=== PATIENT | male | born 1950 | race African-American/Black ===

== ENCOUNTER 2019-11-23 10:20 | Observation (INO) | payer OTHER ==
--- OUTSIDE RECORDS SUMMARY | 2019-11-23 12:32 | XMS REPORT | Continuity of Care Document ---
:1950 Author Organization [facility] t Address [address] [place] [address] Care Team Providers Name Role Phone Olimpia JEREZ Attending Clinician Doctor Unassigned, Name Attending Clinician Unavailable Problems This patient has no known problems. Allergies, Adverse Reactions, Alerts This patient has no known allergies or adverse reactions. Medications This patient has no known medications. Procedures This patient has no known procedures. Encounters Start End Encounter Admission Attending Care Care Encounter Source Date/Time Date/Time Type Type Clinicians Facility Department ID 2019-08-15 2019-08-15 Telemedici DINA Doan 1.2.840.114 [id number] 07:54:39 08:09:39 ne Visit Charlie Moses 350.1.13.10 [place] 4.2.7.2.686 [facility] [id number] [address] 2019-08-06 2019-08-06 Orders Doctor TINEO 1.2.840.114 [id number] 00:00:00 00:00:00 Only UnassignedLEX 350.1.13.10 [place] [facility] 4.2.7.2.686 [id number] 2018-11-12 2018-11-12 Orders Doctor TINEO 1.2.840.114 [id number] 00:00:00 00:00:00 Only UnassignedLEX 350.1.13.10 [place] [facility] 4.2.7.2.686 [id number] 2018-10-23 2018-10-23 Telephone DINA Doan 1.2.991.150 [id number] 00:00:00 00:00:00 Charlie Moses 350.1.13.10 [place] 4.2.7.2.686 [facility] [id number] [place] [address] Building Results This patient has no known results.
[2019-11-23] MEDS ORDERED: HOME MED 1 EA UNK (Acetaminophen With Codeine [Tylenol With Codeine #4 Tablet] 1 EACH) PO PRN (13:44)
[2019-11-23] MEDS ORDERED: DOXAZOSIN 2 MG TAB ONE (15:51)
[2019-11-23] MEDS: minoxidiL 2.5 MG TAB PO SCH (16:03)
[2019-11-23] MEDS: hydroCHLOROthiazide 12.5 MG CAP PO SCH (16:04)
[2019-11-23] MEDS: ASPIRIN 81 MG CHEWABLE TABLET PO SCH (16:05)
[2019-11-23] MEDS: CELECOXIB 100 MG CAPSULE PO SCH (16:05)
[2019-11-23] MEDS: lisinopriL 20 MG TAB PO SCH (16:05)
[2019-11-23] MEDS: DOXAZOSIN 4 MG TAB PO SCH (17:05)
[2019-11-23] MEDS ORDERED: PNEUMOCOCCAL VACCINE 0.5 ML IMVAC ONE (18:00)
[2019-11-23] MEDS ORDERED: CODEINE 30MG/APAP 300MG TAB PO PRN (18:47)
[2019-11-23] MEDS ORDERED: ACETAMINOPHEN 500 MG TAB PO PRN (18:49)
[2019-11-23 19:24] LABS: Absolute Lymphocytes (CBC) 2.5 K/uL (0.7-4.9); Basophils % 0.6 % (0-1.3); Hematocrit 36.2 % (39.6-49.0); Lymphocytes % 38.7 % (15.3-44.8); RBC Red Blood Cell Count 4.05 M/uL (4.33-5.43)
[2019-11-23 19:48] LABS: ALT/SGPT 21 U/L (12-78); AST/SGOT 12 U/L (15-37); Albumin 3.3 g/dL (3.4-5.0); Alkaline Phosphatase 80 U/L (45-117); BUN Blood Urea Nitrogen 12 mg/dL (7-18); Bicarbonate 30 mmol/L (21-32); Bilirubin Total 0.5 mg/dL (0.2-1.0); CKMB Creatine Kinase MB < 1.0 ng/mL (0.3-3.6); Creatine Phosphokinase 174 U/L (39-308); Glucose Level 108 mg/dL (74-106); Magnesium 2.1 mg/dL (1.8-2.4); Potassium 3.7 mmol/L (3.5-5.1); Protein, Total 7.4 g/dL (6.4-8.2); Sodium Level 141 mmol/L (136-145); Troponin I < 0.02 ng/mL (0.0-0.045)
[2019-11-23] MEDS: ENOXAPARIN 30 MG/0.3 ML SQ SCH (20:22)
[2019-11-23] MEDS: CLONIDINE HCL 0.3 MG TAB PO SCH (20:22)
[2019-11-23 20:48] VITALS: BMI 47.5
[2019-11-23] MEDS ORDERED: ATORVASTATIN 20 MG TAB PO SCH (21:00)
--- NOTE | 2019-11-23 22:52 | HP ---
Date of Admission: 11/23/2019 DALE/MODL [facility] ID: [id number] MTDD
--- NOTE | 2019-11-24 08:24 | RAD REPORT ---
EXAM DESCRIPTION: CT - Head Brain Wo Cont - 11/24/2019 7:50 am CLINICAL HISTORY: Headache COMPARISON: None. TECHNIQUE: Computed axial tomography of the head was obtained. IV contrast was not requested. All CT scans are performed using dose optimization technique as appropriate and may include automated exposure control or mA/KV adjustment according to patient size. FINDINGS: An intracranial bleed is not seen . The ventricles are normal in caliber. No extra-axial fluid collection is noted. Mild to moderate opacification involves the ethmoid and frontal sinus compatible with sinusitis IMPRESSION: No acute intracranial abnormality is seen. If patient's symptoms persist MRI of the bra in would be recommended.
[2019-11-24] MEDS: CLONIDINE HCL 0.3 MG TAB PO SCH (08:53)
[2019-11-24] MEDS: minoxidiL 2.5 MG TAB PO SCH (08:53)
[2019-11-24] MEDS: DOXAZOSIN 4 MG TAB PO SCH (08:54)
[2019-11-24] MEDS: lisinopriL 20 MG TAB PO SCH (08:54)
[2019-11-24] MEDS: ASPIRIN 81 MG CHEWABLE TABLET PO SCH (08:55)
[2019-11-24] MEDS: hydroCHLOROthiazide 12.5 MG CAP PO SCH (08:55)
[2019-11-24] MEDS: CELECOXIB 100 MG CAPSULE PO SCH (08:55)
[2019-11-24] MEDS: ENOXAPARIN 30 MG/0.3 ML SQ SCH (09:00)
[2019-11-24] MEDS ORDERED: HYDROCHLOROTHIAZIDE PO SCH (09:00)
[2019-11-24] MEDS ORDERED: CELECOXIB 200 MG PO SCH (09:00)
[2019-11-24] MEDS ORDERED: POTASSIUM CL SA 10 MEQ TAB PO ONE (09:00)
[2019-11-24] MEDS ORDERED: LISINOPRIL PO SCH (09:00)
--- NOTE | 2019-11-24 11:49 | RAD REPORT ---
EXAM DESCRIPTION: Maya Galvan (2 Views)11/24/2019 11:32 am CLINICAL HISTORY: Palpitation COMPARISON: 2016 FINDINGS: The lungs appear clear of acute infiltrate. The heart is normal size IMPRESSION: No acute abnormalities displayed
[2019-11-24 17:21] VITALS: BP 156/74; TEMP 97.3
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
--- NOTE | 2019-11-25 07:45 | CON ---
Date of Consultation: 11/23/[address] Valadez's service on 11/23/2019. The patient was seen on 11/23/2019. Reason For Consultation: Palpitations. History Of Present Illness: Mr. Maguire is a 68-year-old black male, has had a history of hypertension . Has seen Dr. Sunshine in the past. He also has a history of sleep apnea. He came in with palpitat ions and was noted to be in intermittent episodes of supraventricular tachycardia. He did have some shortness of breath with tachycardia, but denied any syncope. Denied any PND, orthopnea, pedal edema . He denied any fever or chills or cough. Denied any chest pain. He is already ruled out for an CT . Catheterization that was done in 2014 by me showed minimal coronary artery disease in the right co ronary artery. Mr. Maguire admits to drinking coffee, but no drug or alcohol was recorded. Past Medical History: Otherwise negative. Allergies: TO NO MEDICATION. Medications: At home include Lipitor, clonidine, aspirin, hydrochlorothiazide, doxazosin, minoxidil, and lisinopril. Review of Systems: Negative. Social History: Negative. Family History: Noncontributory. Physical Examination: Vital Signs: Blood pressure was 162/83. He was in sinus rhythm. HEENT: Negative. Neck: Supple with no bruit. Chest: Clear. Cardiac: Revealed a regular rhythm and rate with S4 gallop. Abdomen: Benign. Extremities: Revealed no clubbing, cyanosis, or edema. Diagnostic Data: Fairly unremarkable. Impression And Plan: Supraventricular tachycardia. I think we need to change his medication from do xazosin to beta-hansa. Echocardiogram is pending. TSH is pending. He has had minimal coronary ar jesus disease in 2016. I do not think we need to do any further cardiac workup at this point. He can certainly follow up with me or Dr. Sunshine. I will leave that up to him. The case was discussed wi th Dr. Valadez. His other problems including dyslipidemia and hypertension are fairly well controlled. NB/MODL Voice ID: [id number] Report ID: [id number]
--- NOTE | 2019-11-25 08:16 | ECHO ---
HEIGHT: 6 ft 1 in WEIGHT: 360 lb 0 oz DATE OF STUDY: 11/24/[address]: Reinier Valadez MD 2-DIMENSIONAL: YES M.MODE: YES DOPPLER: YES COLOR FLOW: YES TDS: YES PORTABLE: NO DEFINITY: NO BUBBLE STUDY: NO DIAGNOSIS: PALPITATIONS CARDIAC HISTORY: CATHERIZATION: NO SURGERY: NO PROSTHETIC VALVE: NO PACEMAKER: NO MEASUREMENTS (cm) DIASTOLIC (NORMALS) SYSTOLIC (NORMALS) IVSd 0.9 (0.6-1.2) LA Diam 3.3 (1.9-4.0) LVEF 52% LVIDd 4.9 (3.5-5.7) LVIDs 3.6 (2.0-3.5) %FS 26% LVPWd 1.1 (0.6-1.2) Ao Diam 2.9 (2.0-3.7) 2 DIMENSIONAL ASSESSMENT: RIGHT ATRIUM: NORMAL LEFT ATRIUM: NORMAL RIGHT VENTRICLE: NORMAL LEFT VENTRICLE: NORMAL TRICUSPID VALVE: NORMAL MITRAL VALVE: PULMONIC VALVE: NORMAL AORTIC VALVE: NORMAL PERICARDIAL EFFUSION: NONE AORTIC ROOT: NORMAL LEFT VENTRICULAR WALL MOTION: NORMAL DOPPLER/COLOR FLOW: NORMAL COMMENTS: NORMAL LEFT VENTRICULAR EJECTION FRACTION 55-60%. NORMAL WALL MOTION. MILD MITRAL REGURGITATION. TECHNOLOGIST: Kim RIVAS
--- NOTE | 2019-11-25 17:12 | DS ---
Date of Discharge: 11/24/2019 Disposition: Discharged to go home. Physical Examination: Please see copy of today's H and P for details. Discharge Medications And Instructions: Continue all prior home medications except stop doxazosin and start metoprolol tartrate 25 mg 1 tablet by mouth 2 times a day. Follow up in my office this week on which is 11/27/2019. Final Diagnoses: 1. Supraventricular tachycardia. 2. Hypertension. 3. Type 2 diabetes mellitus. 4. Hyperlipidemia. 5. Headache. 6. Morbid obesity. 7. Osteoarthritis, multiple sites. 8. Coronary artery disease. 9. Obstructive sleep apnea. 10. Dizziness. 11. Palpitation. Hospital Course: A 68-year-old pleasant male patient, who was admitted to the hospital with complaints of headache, palpitations, and some dizziness. Please see dictated H and P for more information. The patient's cardiac enzymes were normal. EKG was normal. Overnight on air sampling and monitoring, he did have short run of supraventricular tachycardia and he was sleeping through this episode. This morning when I saw him he had no other complaint. Dr. Rolon was consulted from Cardiology Service and the patient had echocardiogram, which was reported as normal. I did talk to Dr. Rolon about medication management and he suggested to start him on metoprolol and discontinue doxazosin, which I agree and details were discussed with the patient and I will see him on outpatient basis for followup. DALE/RISIH Voice ID: [id number] Report ID: [id number] CES[facility]
== END 2019-11-24 17:09 | disposition home or self-care (01) ==
LOC: 2ND 12:30
PROVIDERS: ADMIT Internal Medicine; ATTEND Internal Medicine
DX: I47.1 Supraventricular tachycardia (principal); I10 Essential (primary) hypertension; E11.9 Type 2 diabetes mellitus without complications; E78.5 Hyperlipidemia, unspecified; M15.9 Polyosteoarthritis, unspecified; I25.10 Atherosclerotic heart disease of native coronary artery without angina pectoris; G47.33 Obstructive sleep apnea (adult) (pediatric); R00.2 Palpitations; R42 Dizziness and giddiness; R51 Headache; E66.01 Morbid (severe) obesity due to excess calories; Z20.828 Contact with and (suspected) exposure to other viral communicable diseases; I34.0 Nonrheumatic mitral (valve) insufficiency; Z79.82 Long term (current) use of aspirin; Z79.84 Long term (current) use of oral hypoglycemic drugs; Z79.899 Other long term (current) drug therapy
CPT/HCPCS: 93005; 93306; 85025; 36415; 83735; 82550; 84443; 83036; 84484; 82553; 80053; 70450; 71046; U0002; J1650 ×2; G0379; G0378 ×3

== ENCOUNTER 2023-11-18 08:50 | Emergency (ER) | payer OTHER ==
--- OUTSIDE RECORDS SUMMARY | 2023-11-18 08:53 | XMS REPORT | Continuity of Care Document ---
Author Name Unknown Address [address] [facility] [address] [place] [address] [facility] Address [address] [facility] [place] [address] Care Team Providers Care Wedding Day Coordinator Name Role Phone Reinier Valadez Malika Primary Care Physician [phone] Robby QUINTERO, Charlene Tovar Attending Clinician Unavailab le Only, Ang Db Test Attending Clinician Unavailabl e EbrahiMikaela Magallon Attending Clinician [phone] UNKNOWN, ATTENDING Attending Clinician Unavailab MIKAELA Hernandez Attending Clinician Unavailable Doctor Unassigned, [place] Attending Clinician U Meaghan Faye RN Attending Clinician Unavailable Shelby Mccoy PA-C Attending Clinician [phone] SHELBY MCCOY Attending Clinician Unavailable Nicholas Murphy MD Attending Clinician [phone] NICHOLAS MURPHY Attending Clinician Unavailable Juana Swift Attending Clinician [phone] JUANA RAYGOZA Attending Clinician Unavailable Provider, [facility] Attending Clinician Unavailable RIVKA MIMS Attending Clinician Unavailable Rivka Mims PA-C Attending Clinician [phone] HOLGER ZAMORA Attending Clinician Unavailable HOLGER ZAMORA Attending Clinician Unavailable Holger Zamora DO Attending Clinician [phone] Payers Payer Name Policy Type Policy Number Effective Date Expirati on Date Source Problems Condition Name Condition Details Condition Category Status Onset Date Resolution Date Last Treatment Date Treating Clinician Comments Source No known active problems No known active problems Disease [facility] Allergies, Adverse Reactions, Alerts Allergy Name Allergy Type Status Severity Reaction(s) Onset Date Inactive Date Treating Clinician Comments Source NO KNOWN ALLERGIE S Drug Class Active [facility] Social History Social Habit Start Date Stop Date Quantity Comments Source Gender identity [facility] Exposure to SARS-CoV-2 (event) 2022-06-20 00:00:00 2022-06-30 16:49:00 Not sure [facility] Tobacco use and exposure 2021-10-30 00:00:00 2021-10-30 00:00:00 Smokeless tobacco non-user [facility] History of Social function 2018-10-03 00:00:00 2018-10-03 00:00:00 [facility] Sex Assigned At 1950 00:00:00 1950 00[birth year]00:00 [facility] Smoking Status Start Date Stop Date Source Never smoked tobacco [facility] Medications Ordered Medication Name Filled Medication Name Start Date Stop Date Current Medication? Ordering Clinician Indication Dosage Frequency Signature (SIG) Comments Components Source aspirin 81 mg EC tablet 11-18 09:39: 34 Yes 81mg Take 81 mg by mouth daily. [facility] codeine-gua ifenesin 10-100 mg/5 mL oral solution 11-18 00:00: 00 11-26 04:59 :00 No 4647 5mL Take 5 mL by mouth every 6 (six) hours as needed for Cough for up to 7 days. Indication s: acute pain [facility] molnupiravi r 200 mg capsule 10-30 00:00: 00 Yes [id number] 800mg Take 4 capsules by mouth every 12 (twelve) hours. [facility] aspirin 81 mg EC tablet 08-09 10:31: 36 Yes 81mg Take 81 mg by mouth daily. [facility] atorvastati n 20 mg tablet 08-01 00:00: 00 Yes TAKE 1 TABLET BY ORAL ROUTE EVERY DAY AFTER EVENING MEAL [facility] cloNIDine 0.3 mg tablet 08-01 00:00: 00 Yes TAKE 1 TABLET BY MOUTH TWICE A DAY [facility] doxazosin 4 mg tablet 08-01 00:00: 00 Yes TAKE 1 TABLET BY MOUTH TWICE A DAY [facility] minoxidil 2.5 mg tablet 06-24 00:00: 00 Yes TAKE 2 TABLETS BY MOUTH TWICE A DAY [facility] lisinopril- hydrochloro thiazide 20-12.5 mg per tablet 05-19 00:00: 00 Yes TAKE 1 TABLET BY MOUTH TWICE A DAY [facility] Vital Signs Vital Name Observation Time Observation Value Comments S yuliana Systolic blood pressure 2021-11-18 14:39:00 163 mm[Hg] [facility] Diastolic blood pressure 2021-11-18 14:39:00 89 mm[Hg] [facility] Heart rate 2021-11-18 14:38:00 72 /min [facility] Body temperature 2021-11-18 14:38:00 37.06 Yaneth [facility] Respiratory rate 2021-11-18 14:38:00 20 /min [facility] Body height 2021-11-18 14:38:00 185.4 cm [facility] Body weight 2021-11-18 14:38:00 160.658 kg [facility] BMI 2021-11-18 14:38:00 46.73 kg/m2 [facility] Oxygen saturation in Arterial blood by Pulse oximetry 2021-11-18 14:38:00 98 /min [facility] Procedures Procedure Date / Time Performed Performing Clinicia n Source ASSIGNMENT OF BENEFITS 2022-11-02 18:49:58 Docto r Unassigned, [place] [facility] Encounters Start Date/Time End Date/Time Encounter Type Admission Type Attending Clinicians Care Facility Care Department Encounter ID Source 2022-11-03 00:00:00 2022-11-03 00:00:00 Letter (Out) Charlene Bustamante [facility] 1.2.840.114 350.1.13.10 4.2.7.2.686 [id number] [facility] 2022-11-02 14:00:00 2022-11-02 14:15:00 Laboratory Only Only, Ang Db Test Flo [facility] 1.2.840.114 350.1.13.10 4.2.7.2.686 [id number] [facility] 2022-11-02 14:00:00 2022-11-02 14:00:00 Outpatient R UNKNOWN, ATTENDING [facility] [id number] [facility] 2022-11-02 14:00:00 2022-11-02 13:55:42 Outpatient R BUSHRAOliverMIKAELA [facility] [id number] [facility] 2022-11-02 00:00:00 2022-11-02 00:00:00 Orders Only Doctor Unassigned, [place] [facility] 1..840.114 350.1.13.10 4.2.7.2.686 [id number] [facility] 2022-07-01 00:00:00 2022-07-01 00:00:00 Letter (Out) Meaghan Negro [facility] 1.2.840.114 350.1.13.10 4.2.7.2.686 [id number] [facility] 2022-06-30 16:45:00 2022-06-30 17:00:00 Laboratory Only Only, Ang Db Test Nadine [facility] 1.2.840.114 350.1.13.10 4.2.7.2.686 [id number] [facility] 2022-06-30 16:45:00 2022-06-30 16:45:00 Outpatient R NADINE [facility] [id number] [facility] 2021-12-14 00:00:00 2021-12-14 00:00:00 Letter (Out) Dacia Negrody [facility] 1.84114 350.1.13.10 4.2.7.2.686 [id number] [facility] 2021-12-13 13:00:00 2021-12-13 13:32:36 Laboratory Only Only, Ang Db Test Jeffrey [facility] 1.84114 350.1.13.10 4.2.7.2.686 [id number] [facility] 2021-12-13 13:00:00 2021-12-13 13:00:00 Outpatient R NICHOLAS MURPHY [facility] [id number] [facility] 2021-11-18 09:20:00 2021-11-18 09:40:00 Urgent Care Juana Raygoza Rania [facility] 1.84.114 350.1.13.10 4.2.7.2.686 [id number] [facility] 2021-11-18 09:20:00 2021-11-18 09:20:00 Outpatient JUANA SERRATO [facility] [id number] [facility] 2021-11-17 00:00:00 2021-11-17 00:00:00 Letter (Out) Charlene Bustamante [facility] 1.114 350.1.13.10 4.2.7.2.686 [id number] [facility] 2021-11-17 00:00:00 2021-11-17 00:00:00 Telephone Provider, Yrn Rodriguez Urgent Care [facility] 1.84.114 350.1.13.10 4.2.7.2.686 [id number] [facility] 2021-11-16 09:45:00 2021-11-16 09:48:58 Laboratory Only Only, Ang Db Test Jeffrey [facility] 1..840.114 350.1.13.10 4.2.7.2.686 [id number] [facility] 2021-11-16 09:45:00 2021-11-16 09:45:00 Outpatient R JEFFREY [facility] [id number] [facility] 2021-11-15 00:00:00 2021-11-15 00:00:00 Letter (Out) [facility] 1.840.114 350.1.13.10 4.2.7.2.686 [id number] [facility] 2021-11-14 14:45:00 2021-11-14 15:00:00 Laboratory Only Only, Ang Db Test Jeffrey, [facility] 1..840.114 350.1.13.10 4.2.7.2.686 [id number] [facility] 2021-11-14 14:45:00 2021-11-14 14:45:00 Outpatient Ishan MURPHY [facility] [id number] [facility] 2021-11-08 00:00:00 2021-11-08 00:00:00 Letter (Out) [facility] 1.2840.114 350.1.13.10 4.2.7.2.686 [id number] [facility] 2021-11-06 12:30:00 2021-11-06 12:30:00 Outpatient R FELICITA [facility] [id number] [facility] 2021-10-30 16:20:00 2021-10-30 16:54:34 Urgent Care Felicita [facility] 1.840.114 350.1.13.10 4.2.7.2.686 [id number] [facility] 2021-10-30 16:20:00 2021-10-30 16:54:34 Outpatient Ishan MIMS [facility] [id number] [facility] 2021-10-30 00:00:00 2021-10-30 00:00:00 Orders Only Doctor Unassigned, [place] [facility] 1.2.840.114 350.1.13.10 4.2.7.2.686 [id number] [facility] 2019-08-15 08:40:00 2019-08-15 08:40:00 Outpatient R HOLGER ZAMORA [facility] [id number] [facility] 2019-08-15 07:54:39 2019-08-15 08:09:39 Telemedici ne Visit Olimpia [facility] 1.2.840.114 350.1.13.10 4.2.7.2.686 [id number] 2019-08-06 00:00:00 2019-08-06 00:00:00 Orders Only Doctor Unassigned, [place] [facility] 1.2.840.114 350.1.13.10 4.2.7.2.686 [id number] 2018-11-12 00:00:00 2018-11-12 00:00:00 Orders Only Doctor Unassigned, [place] [facility] 1.2.840.114 350.1.13.10 4.2.7.2.686 [id number] 2018-10-23 00:00:00 2018-10-23 00:00:00 Telephone Holger Zamora [facility] 1.2.840.114 350.1.13.10 4.2.7.2.686 [id number] Notes Date/Time Note Provider Source 2022-11-02 14:00:00 Formatting of this n ote might be different from the original. Connor Maguire is a 71 year old male here for COVID Screening with a Nasopharyngeal Swab All droplet and contact precautions taken with appropriate PPE worn while interacting with patient. Goggles N95 Mask Gloves Gown Patient educated on plan of care for visit, swabbing technique, risks and benefits of test and length of time to receive results. Verbal consent obtained to perform test. CDC Fact Sheet for Patients nCoV Diagnostic Panel dated 06/08/2019 and Factsheet What to Do if Sick with COVID 19 05/19/19 provided. Patient swabbed per appropriate nasopharyngeal technique, and patient tolerated well. Patient was discharged from the testing clinic in stable condition. Rosenda Luke RN 11/02/2022 1:52 PM T [facility]
[2023-11-18 11:21] LABS: Absolute Eosinophils 0.3 K/uL (0-0.5); Absolute Lymphocytes (CBC) 1.6 K/uL (0.7-4.9); Absolute Monocytes 0.4 K/uL (0.1-1.3); Absolute Neutrophil 2.9 K/uL (1.8-8.0); Basophils % 0.5 % (0-1.3); Eosinophils % 6.2 % (0-4.4); Hematocrit 35.1 % (39.6-49.0); Hemoglobin 11.6 g/dL (13.6-17.9); Lymphocytes % 30.6 % (15.3-44.8); MCH 30.4 pg (27.0-35.0); MCV 92.1 fL (80-100); MPV 8.6 fL (7.6-11.3); Monocytes % 6.9 % (3.3-12.3); Neutrophils % 55.8 % (41.7-73.7); Platelets 182 thou/uL (152-406); RBC Red Blood Cell Count 3.82 M/uL (4.33-5.43); Red Cell Distribution Width 13.6 % (12.1-15.2)
[2023-11-18 11:22] LABS: PT Prothrombin Time 13.4 SECONDS (9.4-12.5); Protime INR 1.2
[2023-11-18 11:38] LABS: ALT/SGPT 31 U/L (16-61); AST/SGOT 20 U/L (15-37); Albumin 3.3 g/dL (3.4-5.0); Albumin/Globulin Ratio 0.9 (1.1-1.8); Alkaline Phosphatase 78 U/L (45-117); Anion Gap 5.1 mEq/L (5.0-15.0); BUN Blood Urea Nitrogen 19 mg/dL (7-18); Bicarbonate 31 mEq/L (21-32); Bilirubin Total 0.6 mg/dL (0.2-1.0); Globulin 3.8 g/dL (2.3-3.5); Glomerular Filtration Rate 70 ml/min (=/>90); Glucose Level 109 mg/dL (74-106); Magnesium 2.1 mg/dL (1.6-2.4); NT PRO-BNP 147 pg/mL (<125); Potassium 4.1 mEq/L (3.5-5.1); Protein, Total 7.1 g/dL (6.4-8.2); Sodium Level 135 mEq/L (136-145); Troponin High Sensitivity 12.1 pg/mL (<58.9)
[2023-11-18 11:42] LABS: Bilirubin Direct < 0.2 mg/dL (0-0.2); Bilirubin Indirect, Calculated 0.4 mg/dL (0.2-0.8)
--- NOTE | 2023-11-18 12:04 | RAD REPORT ---
EXAM DESCRIPTION: RAD - Hip Right 2 View - 11/18/2023 11:57 am CLINICAL HISTORY: PAIN COMPARISON: Thorax W/ Con dated 04/04/2023; Head C Spine Cap Wo Con dated 04/04/2023Hip Right 2 View d ated 06/02/2022; Hip Right 2 View dated 01/15/2014 TECHNIQUE: Right hip, AP and frog-leg views. FINDINGS: There is no fracture or dislocation. No acute or destructive bony process seen. IMPRESSION: No acute findings of the right hip.
--- NOTE | 2023-11-18 12:05 | RAD REPORT ---
EXAM DESCRIPTION: RAD - Knee Right 3 View - 11/18/2023 11:57 am CLINICAL HISTORY: PAIN COMPARISON: < 06/02/2022 > TECHNIQUE: Right knee, 3 views. FINDINGS: No fracture, dislocation or periosteal reaction.No joint effusion seen. Mild degenerative changes with marginal spurring most pronounced along the medial weight-bearing compartment. Enthesopa thy at the patellar and quadriceps tendon attachments. No soft tissue abnormality. Clinical concerns for internal derangement or occult bony injury could be further assessed with MR im aging. IMPRESSION: No acute osseous abnormality. Findings as above.
--- NOTE | 2023-11-18 12:06 | RAD REPORT ---
EXAM DESCRIPTION: Anat Single View11/18/2023 11:57 am CLINICAL HISTORY: edema COMPARISON: Knee Right 3 View dated 3Chest Pa And Lat (2 Views) dated 11/24/2019; Chest Singl e View dated 10/20/2015; CHEST SINGLE VIEW dated 10/26/2014; CHEST PA AND LAT 2 VIEW dated 07/08/2014Ches t Pa And Lat (2 Views) dated 11/24/2019; Chest Single View dated 10/20/2015; CHEST SINGLE VIEW dated 10/26/2014; CHEST PA AND LAT 2 VIEW dated 07/08/2014 TECHNIQUE: Portable AP view of the chest. FINDINGS: The lungs are clear. No pneumothorax or effusion. The cardiomediastinal contours are unre markable. IMPRESSION: No acute cardiopulmonary process.
--- NOTE | 2023-11-18 12:07 | RAD REPORT ---
EXAM DESCRIPTION: RAD - Knee Left 3 View - 11/18/2023 11:57 am CLINICAL HISTORY: PAIN COMPARISON: No comparisons TECHNIQUE: Left knee, 3 views. FINDINGS: No fracture, dislocation or periosteal reaction.No joint effusion seen. Mild degenerative changes with minimal left weight-bearing compartment marginal spurring. Enthesopathy at the quadricep s tendon attachment. No soft tissue abnormality. Clinical concerns for internal derangement or occult bony injury could be further assessed with MR im aging. IMPRESSION: No acute osseous abnormality. Chronic findings as above.
--- NOTE | 2023-11-18 12:53 | RAD REPORT ---
EXAM DESCRIPTION: US - Extrem Venous W Compress Bud - 11/18/2023 12:06 pm CLINICAL HISTORY: Swelling COMPARISON: None. TECHNIQUE: Real-time sonographic evaluation of the bilateral lower extremity deep venous systems was performed. FINDINGS: Normal compressibility, flow augmentation, phasic flow and spontaneous flow is identified in both the left and right lower extremity deep venous systems. No intraluminal filling defects seen. IMPRESSION: No DVT in either lower extremity.
--- NOTE | 2023-11-18 13:17 | ER ---
Nurse's Notes [facility] Name: Connor Maguire Age: 72 yrs Sex: Male : 1950 Arrival Date: 11/18/2023 Time: 08:50 Bed 20 Private MD: Diagnosis: Pain in knee-bilateral;Pain in right hip Presentation: 11/17 09:22 Chief complaint: Pain in right hip and knee pain and BLE swelling x 2 weeks. hb Coronavirus screen: At this time, the client does not indicate any symptoms associated with coronavirus-19. Ebola Screen: No symptoms or risks identified at this time. Initial Sepsis Screen: Does the patient meet any 2 criteria? No. Patient's initial sepsis screen is negative. Does the patient have a suspected source of infection? No. Patient's initial sepsis screen is negative. Risk Assessment: Do you want to hurt yourself or someone else? Patient reports no desire to harm self or others. Onset of symptoms was November 04, 2023. 09:22 Method Of Arrival: Wheelchair hb 09:22 Acuity: HELENA 3 hb Triage Assessment: : General: Appears in no apparent distress. Behavior is calm, cooperative. Pain: Pain hb currently is 7 out of 10 on a pain scale. Historical: - Allergies: 09:24 No Known Drug Allergies; hb - PMHx: 09:24 CHF; Hypertension; hb - Immunization history:: Adult Immunizations up to date. - Infectious Disease History:: Denies. - Social history:: Smoking status: Patient denies any tobacco usage or history of. Screenin:15 [facility] ED Fall Risk Assessment (Adult) History of falling in the last 3 months, me1 including since admission No falls in past 3 months (0 pts) Confusion or Disorientation No (0 pts) Intoxicated or Sedated No (0 pts) Impaired Gait No (0 pts) Mobility Assist Device Used No (0 pt) Altered Elimination No (0 pt) Score/Fall Risk Level 0 - 2 = Low Risk Maintained a safe environment, Provided non-skid footwear, Hourly rounding (assess needs \T\ fall precautionary measures) done. Abuse screen: Denies threats or abuse. Nutritional screening: No deficits noted. Tuberculosis screening: No symptoms or risk factors identified. Assessment: 12:15 General: Appears uncomfortable, well groomed, well developed, Behavior is calm, me1 cooperative, appropriate for age, Reports Pain in right hip and knee pain and BLE swelling x 2 weeks. Pain: Complains of pain in right hip, right knee Pain does not radiate. Pain currently is 4 out of 10 on a pain scale. Quality of pain is described as aching, Pain began gradually, 2 weeks Is continuous. Neuro: Level of Consciousness is awake, alert, obeys commands, Oriented to person, place, time, situation, Appropriate for age. Cardiovascular: Patient's skin is warm and dry. Respiratory: Airway is patent Trachea midline Respiratory effort is even, unlabored, Respiratory pattern is regular, symmetrical. GI: No signs and/or symptoms were reported involving the gastrointestinal system. : No signs and/or symptoms were reported regarding the genitourinary system. EENT: No signs and/or symptoms were reported regarding the EENT system. Derm: Skin is intact, is healthy with good turgor, Skin is pink, warm \T\ dry. Musculoskeletal: Swelling present in right leg and left leg. Vital Signs: 09:22 BP 145 / 83; Pulse 66; Resp 16; Temp 97.9; Pulse Ox 100% on R/A; Weight 161.93 kg; hb Height 6 ft. 1 in. ; Pain 7/10; 12:30 BP 176 / 79; Pulse 55; Resp 18; Pulse Ox 100% on R/A; me1 13:30 BP 182 / 85; Pulse 57; Resp 17; Temp 98.1; Pulse Ox 100% on R/A; me1 09:22 Body Mass Index 47.10 (161.93 kg, 185.42 cm) hb 09:22 Pain Scale: Adult hb ED Course: 08:53 Patient arrived in ED. ra3 09:24 Triage completed. hb 09:24 Arm band placed on. hb 09:37 Sudeep Bassett PA is PHCP. cp 09:37 Tara Moore MD is Attending Physician. cp 11:13 Basic Metabolic Panel Sent. cm10 11:13 CBC with Diff Sent. cm10 11:13 LFT's Sent. cm10 11:13 Magnesium Sent. cm10 11:13 NT PRO-BNP Sent. cm10 11:13 PT-INR Sent. cm10 11:13 Troponin HS Sent. cm10 11:13 Accessed peripheral vein via ultrasound, utilizing dynamic ultrasound technique Blood cm10 collected. Clean \T\ dry. Dressing intact. Good blood return. Flushes easily. 20G right forearm.. Missed attempt(s): 20 gauge in left antecubital area. Bleeding controlled, band aid applied, catheter tip intact. 11:57 US Extremity Venous W Compression Bud In Process Unspecified. EDMS 11:59 XRAY Chest (1 view) In Process Unspecified. EDMS 11:59 XRAY Knee RIGHT 3 view In Process Unspecified. EDMS 11:59 XRAY Knee LEFT 3 view In Process Unspecified. EDMS 11:59 XRAY Hip RIGHT 2 view In Process Unspecified. EDMS 12:15 Patient has correct armband on for positive identification. Bed in low position. Call me1 light in reach. Side rails up X2. Provided Education on: POC. Verbalized understanding. . Client placed on continuous cardiac and pulse oximetry monitoring. NIBP monitoring applied. classroom monitor on. Pulse ox on. NIBP on. 12:15 No provider procedures requiring assistance completed. me1 12:35 Hope Moss, INGRID is Primary Nurse. me1 13:16 Juan Thompson MD is Referral Physician. cp 13:49 EKG done, by ED staff, reviewed by Sudeep ALBA. me1 14:08 IV discontinued, intact, bleeding controlled, No redness/swelling at site. Pressure me1 dressing applied. Administered Medications: 13:35 Drug: Ketorolac IVP 30 mg IVP once Route: IVP; Site: right antecubital; me1 13:48 Follow up: Response: No adverse reaction; Pain is decreased me1 Medication: 12:15 VIS not applicable for this client. me1 Outcome: 13:17 Discharge ordered by . cp 14:08 Discharged to home via wheelchair, with significant other, me1 14:08 Condition: stable 14:08 Discharge instructions given to patient, significant other, Instructed on discharge instructions, follow up and referral plans. medication usage, Demonstrated understanding of instructions, follow-up care, medications, Prescriptions given X 1, 14:08 Patient left the ED. me1 Signatures: Dispatcher [employer] Sudeep Villeda PA PA cp Baxter, Heather, RN RN hb Martinez, Clarissa, RN RN cm10 Hope Moss RN RN me1 Gianna Horvath ra3 Corrections: (The following items were deleted from the chart) 13:19 09:22 Chief complaint: Pain in right hip and knee pain and BLE swelling x 2 weeks. me1
--- NOTE | 2023-11-18 13:17 | EDPHYS ---
Physician Documentation [facility] Name: Connor Maguire Age: 72 yrs Sex: Male : 1950 Arrival Date: 11/18/2023 Time: 08:50 Bed 20 Private MD: ED Physician Tara Moore HPI: 11/17 10:15 This 72 yrs old Black Male presents to ER via Wheelchair with complaints of Knee Pain, cp Hip Pain, Leg Swelling. 10:15 The patient presents with pain. cp 10:15 The complaints affect the right hip and right knee and left knee. Context: resulted cp from an unknown cause, the patient can fully bear weight, the patient is able to ambulate, with moderate difficulty, Problem is a result from a previous injury: No. Onset: The symptoms/episode began/occurred for months. Associated signs and symptoms: Pertinent positives: swelling, Pertinent negatives fever, warmth. Treatment prior to arrival includes: no previous treatment. Historical: - Allergies: 09:24 No Known Drug Allergies; hb - PMHx: 09:24 CHF; Hypertension; hb - Immunization history:: Adult Immunizations up to date. - Infectious Disease History:: Denies. - Social history:: Smoking status: Patient denies any tobacco usage or history of. ROS: 10:12 Constitutional: HX per HPI cp 10:12 Constitutional: Negative for body aches, chills, fever, cp 10:12 Cardiovascular: Positive for edema, Negative for chest pain, palpitations, 10:12 Respiratory: Negative for cough, shortness of breath, wheezing, 10:12 Abdomen/GI: Negative for abdominal pain, vomiting, diarrhea, constipation, 10:12 Back: Negative for pain at rest, pain with movement, 10:12 All other systems are negative, Exam: 10:20 Constitutional: The patient appears in no acute distress, alert, awake, cp non-diaphoretic, non-toxic, well developed, well nourished, obese, 10:20 Head/Face: Normocephalic, atraumatic. cp 10:20 Eyes: Periorbital structures: appear normal, Conjunctiva: normal, no exudate, no cp injection, Sclera: no appreciated abnormality, Lids and lashes: appear normal, bilaterally, 10:20 ENT: External ear(s): are unremarkable, Nose: is normal, Mouth: Lips: moist, Oral mucosa: moist, Posterior pharynx: Airway: no evidence of obstruction, patent, 10:20 Neck: ROM/movement: is normal, is supple, without pain, no range of motions limitations, 10:20 Chest/axilla: Inspection: normal, 10:20 Cardiovascular: Rate: normal, Rhythm: regular, Edema: ankle edema, that is moderate, 10:20 Respiratory: the patient does not display signs of respiratory distress, Respirations: normal, no use of accessory muscles, no retractions, labored breathing, is not present, Breath sounds: are clear throughout, no decreased breath sounds, no stridor, no wheezing, 10:20 Abdomen/GI: Inspection: obese Palpation: abdomen is soft and non-tender, in all quadrants, 10:20 Musculoskeletal/extremity: Extremities: grossly normal except: noted in the right hip and right knee and left knee: pain, ROM: limited passive range of motion due to pain, in the right hip and right knee and left knee, Perfusion: the extremity is normally perfused throughout, the right leg and left leg Sensation intact. 10:20 Skin: cellulitis, is not appreciated, no rash present. 10:20 Neuro: Orientation: to person, place \T\ time. Mentation: is normal, Vital Signs: 09:22 BP 145 / 83; Pulse 66; Resp 16; Temp 97.9; Pulse Ox 100% on R/A; Weight 161.93 kg; hb Height 6 ft. 1 in. ; Pain 7/10; 12:30 BP 176 / 79; Pulse 55; Resp 18; Pulse Ox 100% on R/A; me1 13:30 BP 182 / 85; Pulse 57; Resp 17; Temp 98.1; Pulse Ox 100% on R/A; me1 09:22 Body Mass Index 47.10 (161.93 kg, 185.42 cm) hb 09:22 Pain Scale: Adult hb MDM: 09:37 Patient medically screened. cp 13:16 Data reviewed: vital signs, nurses notes, lab test result(s), EKG, radiologic studies, cp plain films, ultrasound, and as a result, I will discharge patient. 13:16 Differential diagnosis: dvt, lymphedema, cellulitis. I considered the following cp discharge prescriptions or medication management in the emergency department Medications were administered in the Emergency Department. See MAR. Independent interpretation of the following test(s) in the Emergency Department EKG: See my EKG interpretation above. Care significantly affected by the following chronic conditions: Hypertension, Congestive Heart Failure, Obesity. Counseling: I had a detailed discussion with the patient and/or guardian regarding the historical points, exam findings, and any diagnostic results supporting the discharge/admit diagnosis, lab results, radiology results, the need for outpatient follow up, a family practitioner, a orthopedic surgeon, to return to the emergency department if symptoms worsen or persist or if there are any questions or concerns that arise at home. Response to treatment: the patient's symptoms have mildly improved after treatment, and as a result, I will discharge patient. 11/17 10:10 Order name: Basic Metabolic Panel; Complete Time: 11:57 cp 11/17 11:57 Interpretation: Normal except: NA 135; GLUC 109; BUN 19; GFR 70. cp 11/17 10:10 Order name: CBC with Diff; Complete Time: 11:57 cp 11/17 11:57 Interpretation: Normal except: RBC 3.82; HGB 11.6; HCT 35.1; EOSINOPHIL % 6.2. cp 11/17 10:10 Order name: LFT's; Complete Time: 11:57 cp 11/17 11:58 Interpretation: Normal except: ALB 3.3; GLOB 3.8; A/G 0.9. cp 11/17 10:10 Order name: Magnesium; Complete Time: 11:57 cp 11/17 10:10 Order name: NT PRO-BNP; Complete Time: 11:57 cp 11/17 10:10 Order name: PT-INR; Complete Time: 11:57 cp 11/17 10:10 Order name: Troponin HS; Complete Time: 11:57 cp 11/17 10:10 Order name: XRAY Chest (1 view); Complete Time: 12:59 cp 11/17 13:00 Interpretation: Report review. cp 11/17 10:47 Order name: XRAY Knee RIGHT 3 view; Complete Time: 12:59 cp 11/17 10:47 Order name: XRAY Knee LEFT 3 view; Complete Time: 12:59 cp 11/17 10:47 Order name: XRAY Hip RIGHT 2 view; Complete Time: 12:59 cp 11/17 11:01 Order name: US Extremity Venous W Compression Bud; Complete Time: 12:59 cp 11/17 10:10 Order name: EKG; Complete Time: 10:10 cp 11/17 10:10 Order name: Cardiac monitoring; Complete Time: 13:49 cp 11/17 10:10 Order name: EKG - Nurse/Tech; Complete Time: 13:49 cp 11/17 10:10 Order name: IV Saline Lock; Complete Time: 11:13 cp 11/17 10:10 Order name: Labs collected and sent; Complete Time: 11:13 cp 11/17 10:10 Order name: O2 Per Protocol; Complete Time: 12:35 cp 11/17 10:10 Order name: O2 Sat Monitoring; Complete Time: 12:35 cp 11/17 12:59 Order name: Tk Wrap: please tk wrap lower legs; Complete Time: 13:48 cp Administered Medications: 13:35 Drug: Ketorolac IVP 30 mg IVP once Route: IVP; Site: right antecubital; me1 13:48 Follow up: Response: No adverse reaction; Pain is decreased me1 Disposition Summary: 11/18/23 13:17 Discharge Ordered Notes: Location: Home cp Problem: new cp Symptoms: have improved cp Condition: Stable cp Diagnosis - Pain in knee - bilateral cp - Pain in right hip cp Followup: cp - With: Juan Thompson MD - When: 1 week - Reason: joint pain Discharge Instructions: - Discharge Summary Sheet cp - How to Use a Knee Brace cp - Lymphedema cp - Hip Pain cp - How to Use Compression Stockings cp - Chronic Knee Pain, Adult cp Forms: - Medication Reconciliation Form cp - Antibiotic Education cp - Prescription Opioid Use cp - Patient Portal Instructions cp - Leadership Thank You Letter cp Prescriptions: - Mobic 7.5 mg Oral tablet - take 1 tablet ORAL route every 12 hours take with food; 30 tablet; Refills: 0, cp Product Selection Permitted Signatures: Dispatcher [employer] EDMS Sudeep Bassett PA PA cp Carmen Woods RN RN hb Eddleman, Michelle, RN RN me1 Corrections: (The following items were deleted from the chart) 10:11 10:10 BASIC METABOLIC PANEL+C.LAB.BRZ ordered. EDMS EDMS 10:11 10:10 CBC+H.LAB.BRZ ordered. EDMS EDMS 10:11 10:10 HEPATIC FUNCTION+C.LAB.BRZ ordered. EDMS EDMS 10:11 10:10 MAGNESIUM+C.LAB.BRZ ordered. EDMS EDMS 10:11 10:10 PROBNP+C.LAB.BRZ ordered. EDMS EDMS 10:11 10:10 PROTIME (+INR)+COAG.LAB.BRZ ordered. EDMS EDMS 10:11 10:10 Troponin High Sensitivity+C.LAB.BRZ ordered. EDMS EDMS
[2023-11-18] MEDS ORDERED: KETOROLAC 30 MG/ML INJ ONE (13:32)
[2023-11-18 14:27] VITALS: O2SAT 100
[2023-11-18 14:31] VITALS: BP 182/85; TEMP 98.1
--- NOTE | 2023-11-19 10:00 | EKG ---
Test Date: 2023-11-18 Test Time: 13:07:54 Software Business Analyst: VJ MEASUREMENT RESULTS: Intervals: Rate: 62 DE: 178 QRSD: 104 QT: 432 QTc: 438 [place]: P: 72 DE: 178 QRS: 77 T: 35 INTERPRETIVE STATEMENTS: Normal sinus rhythm Normal ECG Compared to ECG 11/23/2019 19:58:09 No significant changes Electronically Signed On 11-19-23 10:00:10 CDT by Ramo Gonzalez
== END 2023-11-18 14:08 | disposition home or self-care (01) ==
LOC: ER 08:50
DX: M25.562 Pain in left knee (principal); M25.561 Pain in right knee; M25.551 Pain in right hip; I10 Essential (primary) hypertension; I50.9 Heart failure, unspecified
CPT/HCPCS: 36415; 71045; 80048; 80076; 83735; 83880; 84484; 85025; 85610; 93005; 93970; 96374; 99285

== ENCOUNTER 2024-01-30 06:07 | Day surgery (SDC) | payer OTHER ==
[2024-01-30] MEDS: Ringers Lactate 1,000 ML IV ONE (06:45)
[2024-01-30] MEDS ORDERED: LIDOCAINE 2% MPF 5 ML VIAL ONE (07:11)
[2024-01-30] MEDS ORDERED: ONDANSETRON 4 MG/2 ML VIAL ONE (07:11)
[2024-01-30] MEDS ORDERED: FENTANYL CITR 100 MCG/2 ML ONE (07:11)
[2024-01-30] MEDS ORDERED: propofoL 200 MG/20 ML VIAL IV ONE (07:11)
[2024-01-30] MEDS ORDERED: MIDAZOLAM HCL 2 MG/2 ML INJ ONE (07:11)
[2024-01-30] MEDS ORDERED: DEXMEDETOMIDINE HCL 200 MCG/2 ML VIAL ONE (07:19)
[2024-01-30] MEDS ORDERED: FAMOTIDINE 20 MG/2 ML VIAL IV ONE (07:20)
[2024-01-30] MEDS ORDERED: KETAMINE HCL IN 0.9 % NACL 50 MG/5 ML SYRINGE IV ONE (07:49)
[2024-01-30] MEDS: CEFAZOLIN SODIUM 2 GM/VIAL ONE (07:49)
[2024-01-30] MEDS: BUPIVACAINE 0.5% PF 10 ML VIAL ONE (07:57)
[2024-01-30] MEDS ORDERED: dexAMETHasone 4 MG/ML VIAL ONE (08:00)
[2024-01-30] MEDS ORDERED: GLYCOPYRROLATE 0.2 MG/ML SYR ONE (08:33)
--- NOTE | 2024-01-30 08:58 | P.OP ---
Date of Service: 01/30/24 Preop diagnosis: Large infected sebaceous cyst left posterior shoulder Postop diagnosis: Same Procedure performed: Wide excision left posterior shoulder mass 14.5 x 8 cm with layered closure Surgeon: Maximino Wang MD Manager Regulatory: Kaylene COLMENARES Estimated blood loss: Minimal Specimen: Infected cyst Findings: As above Anesthesia: General Complications: None Drains: Quarter-inch [place] drain Fluids and blood products: Nonapplicable Disposition: Recovery room Operative note: Patient brought to the OR and placed in supine position. General anesthesia began. Patient placed in the right lateral position. Patient prepped and draped in usual sterile fashion. Marcaine 0.5% infiltrated locally for postop pain control. 15 blade used to make a 14.5 x 8 cm incision to include this entire large inflamed and infected cyst. Subcutaneous tissue divided. Entire cyst and contents excised in 1 piece down through the deep s ubcutaneous tissue. Entire specimen labeled appropriately and sent to pathology. Wound irrigated and bleeding controlled cautery. Flaps created. 2- 0 chromic and 0 chromic used to reapproximate the deep subcutaneous tissue. 3-0 nylon used to close the skin. Quarter inch Amber drain was placed in the wound and secured with 3-0 nylon as well. Sterile dressing applied. Patient awakened and taken to recovery room in good general condition. CC: Dr. Valadez's office
[2024-01-30 09:18] VITALS: O2SAT 100
[2024-01-30] MEDS ORDERED: HYDROCODONE/APAP 7.5/325 MG TAB PO PRN (09:23)
[2024-01-30 12:37] VITALS: TEMP 97
[2024-01-30 12:39] VITALS: BP 164/80
== END 2024-01-30 10:55 | disposition home or self-care (01) ==
LOC: OR 06:07
PROVIDERS: ATTEND Surgery
PROC: 0JB70ZZ Excision of Back Subcutaneous Tissue and Fascia, Open Approach (ICD-10-PCS; principal; 2024-01-30 07:30)
DX: L72.0 Epidermal cyst (principal); I10 Essential (primary) hypertension
CPT/HCPCS: 88304; 11406; 12035; J2704; J1100; J2003; J2250; J3010; J2405; J7120